=== PATIENT | female | born 1975 | race African-American/Black ===

== ENCOUNTER 2022-09-06 15:44 | Outpatient (CLI) | payer OTHER, SELFPAY ==
--- NOTE | ~2022-09-06 | MM_ITS ---
EXAMINATION: MM screening [facility] BI w vianney HISTORY: Screening TECHNIQUE: Craniocaudal and mediolateral oblique 3-D tomosynthesis images were obtained and synthetic 2-D images were generated. CAD analysis was submitted and interpreted. COMPARISON: Comparison to multiple prior studies sequentially, with oldest reviewed study dated 03/26. BREAST PARENCHYMAL COMPOSITION: There are scattered areas of fibroglandular density. FINDINGS: There is no evidence of suspicious mass, calcification, or architectural distortion to sugg est malignancy in either breast. There has been no suspicious interval change. IMPRESSION: 1. No mammographic evidence of malignancy. 2. Recommend routine screening mammography in one year. BI-RADS Category 1: Negative Reviewed, dictated and finalized at location A. 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
== END 2022-09-06 15:45 | disposition home or self-care (01) ==
LOC: ANHIMG 15:46
PROVIDERS: PCP Family Medicine; Visit Provider Family Medicine
DX: Z12.31 Encounter for screening mammogram for malignant neoplasm of breast (principal)
CPT/HCPCS: 77063; 77067

== ENCOUNTER 2024-02-27 15:39 | Outpatient (CLI) | payer OTHER, SELFPAY ==
--- NOTE | ~2024-02-27 | MM_ITS ---
EXAMINATION: MM screening [facility] BI w vianney HISTORY: Screening TECHNIQUE: Craniocaudal and mediolateral oblique 3-D tomosynthesis images were obtained and synthetic 2-D images were generated. CAD analysis was submitted and interpreted. COMPARISON: Comparison to multiple prior studies sequentially, with oldest reviewed study dated 10/08. BREAST PARENCHYMAL COMPOSITION: There are scattered areas of fibroglandular density. FINDINGS: There is no evidence of suspicious mass, calcification, or architectural distortion to sugg est malignancy in either breast. There has been no suspicious interval change. IMPRESSION: 1. No mammographic evidence of malignancy. 2. Recommend routine screening mammography in one year. BI-RADS Category 1: Negative Reviewed, dictated and finalized at location B.
== END 2024-02-27 15:40 | disposition home or self-care (01) ==
LOC: ANHIMG 15:41
PROVIDERS: PCP Family Medicine; Visit Provider Family Medicine
DX: Z12.31 Encounter for screening mammogram for malignant neoplasm of breast (principal)
CPT/HCPCS: 77063; 77067

== ENCOUNTER 2024-08-06 00:32 | Day surgery (SDC) | payer OTHER, SELFPAY ==
[2024-07-27 14:05] VITALS: BMI 33.0
[2024-08-06 13:02] VITALS: BP 135/85; PULSE 80; RESP 16; TEMP 36.3; O2SAT 94
--- NOTE | 2024-08-06 13:13 | P.PNAN_ITS ---
Anes - Initial Pre Proc Eval Procedure: Operation Date: 08/06/24 14:00 Proposed Procedures p Screening Colonoscopy - Jarek Turk MD Date/Time: 08/06/24 13:13 Surgeon: Jarek Turk MD Pre Op Diagnosis: Screening of colon Patient Data Age: 49 Gender: F Height: 1.7 m Weight: 95.7 kg Last Vital Signs Temp 36.3 C L 08/06/24 13:02 Pulse 80 08/06/24 13:02 Resp 16 08/06/24 13:02 BP 135/85 08/06/24 13:02 Pulse Ox 94 08/06/24 13:02 O2 Del Method Room Air 08/06/24 13:02 Allergies Allergy/AdvReac Type Severity Reaction Status Date / Time doxycycline Allergy Mild rash Verified 08/06/24 12:54 Home Medications Medication Instructions Recorded Confirmed Type spironolactone 50 mg tablet 50 mg PO DAILY #90 tabs 05/21/23 08/06/24 Rx duloxetine 60 mg capsule,delayed 60 mg PO DAILY #90 caps 06/23/24 08/06/24 Rx release (Cymbalta) phentermine 37.5 mg capsule 37.5 mg PO DAILY #30 caps 08/02/24 08/06/24 Rx Patient hx anesthesia problems: none Family hx anesthesia problems: none Results Review: All pre-operative results and documents have been reviewed as part of the pre-operative evaluation. [facility] Past Medical History Medical History Acne cystica Acute maxillary sinusitis, unspecified Acute non-recurrent ethmoidal sinusitis Carpal tunnel syndrome, bilateral Epigastric pain Generalized pruritus GERD (gastroesophageal reflux disease) GERD without esophagitis Goiter Goiter Hives Hives Major depressive disorder, recurrent, moderate MDD (major depressive disorder), recurrent episode, moderate Obesity (BMI 30-39.9) Other specified noninflammatory disorders of vagina (11/25/17) RUQ abdominal pain Wax in ear Surgical History Surgical History H/O partial thyroidectomy Family History Family History Grandparent Family history of osteoarthritis Cerebrovascular accident Hypertension Family history of alcoholism Diabetes mellitus Mother Hypertension Cerebrovascular accident Patient's mother is in good health Family history of syncope Depression Family history of anemia Family history of hepatitis Sibling Patient's sister is in good health Depression Father Family history of hepatitis Social History Social History (Updated 04/05/24 @ 16:06 by Gaby Healy) Social History: Smoking status: Never smoker Second hand tobacco smoke exposure: No Alcohol intake: never Substance use: never Substance use type: does not use Do You Feel Safe in your Home?: Yes Lack of Transportation: No Lack of Food: Never True Current Housing: I Have Housing Concerned About Future Housing: No Difficulty Paying Gas/Electric Bills: No Difficulty Paying for Meds: No Currently Unemployed: No Education: Bachelor's Degree Difficulty w/ Childcare or Family Care: No Living arrangements: with family Occupation/Education: occupation Additional occupation/education comments: [employer] Work[employer] Gender identity (if verbalized by the patient): Female Sexual Orientation (if Verbalized by the Patient): Straight or Heterosexual Spiritual care concerns: No Anes - Eval Final PreProcedure Day of Procedure 08/06/24 13:13 Patient weight: obese Heart: regular rate and rhythm Lungs: clear to auscultation Airway: Mallampati scale class II Neurological: alert and oriented Last oral intake: >/= 8 hours ASA classification: II Emergent: no Anesthetic plan: proceed Anesthesia type and monitoring: general GIVS and standard monitoring Results Review: All pre-operative results and documents have been reviewed as part of the pre- operative evaluation. Informed Consent: The patient's anesthetic plan and its attendant risks and benefits were discussed with the patient/family/POA. Questions were solicited and answers provided to the satisfaction of the patient/family/POA.
[2024-08-06] MEDS: LACTATED RINGERS 1,000 ML 150 ML IV CONT (13:18)
--- NOTE | 2024-08-06 13:23 | P.HP_ITS ---
History of Present Illness History of Present Illness Consent: Risks, benefits, and alternatives have been discussed and questions answered. Patient agrees to proceed with procedure. Chief complaint: Screening of colon Narrative: Barbara Kahn is a 49 year old female here for first screening colonoscopy Review of Systems Review of Systems: All systems reviewed & are unremarkable except as noted in HPI and below PMFSH Past Medical History Medical History Acne cystica Acute maxillary sinusitis, unspecified Acute non-recurrent ethmoidal sinusitis Carpal tunnel syndrome, bilateral Epigastric pain Generalized pruritus GERD (gastroesophageal reflux disease) GERD without esophagitis Goiter Goiter Hives Hives Major depressive disorder, recurrent, moderate MDD (major depressive disorder), recurrent episode, moderate Obesity (BMI 30-39.9) Other specified noninflammatory disorders of vagina (11/25/17) RUQ abdominal pain Wax in ear Surgical History Surgical History H/O partial thyroidectomy Family History Family History Grandparent Family history of osteoarthritis Cerebrovascular accident Hypertension Family history of alcoholism Diabetes mellitus Mother Hypertension Cerebrovascular accident Patient's mother is in good health Family history of syncope Depression Family history of anemia Family history of hepatitis Sibling Patient's sister is in good health Depression Father Family history of hepatitis Social History Social History (Updated 04/05/24 @ 16:06 by Gaby Healy) Social History: Smoking status: Never smoker Second hand tobacco smoke exposure: No Alcohol intake: never Substance use: never Substance use type: does not use Do You Feel Safe in your Home?: Yes Lack of Transportation: No Lack of Food: Never True Current Housing: I Have Housing Concerned About Future Housing: No Difficulty Paying Gas/Electric Bills: No Difficulty Paying for Meds: No Currently Unemployed: No Education: Bachelor's Degree Difficulty w/ Childcare or Family Care: No Living arrangements: with family Occupation/Education: occupation Additional occupation/education comments: [employer] Gender identity (if verbalized by the patient): Female Sexual Orientation (if Verbalized by the Patient): Straight or Heterosexual Spiritual care concerns: No Meds Home Medications and Allergies Home Medications Medication Instructions Recorded Confirmed Type spironolactone 50 mg tablet 50 mg PO DAILY #90 tabs 05/21/23 08/06/24 Rx duloxetine 60 mg capsule,delayed 60 mg PO DAILY #90 caps 06/23/24 08/06/24 Rx release (Cymbalta) phentermine 37.5 mg capsule 37.5 mg PO DAILY #30 caps 08/02/24 08/06/24 Rx Allergies Allergy/AdvReac Type Severity Reaction Status Date / Time doxycycline Allergy Mild rash Verified 08/06/24 12:54 Vital Signs Vital Signs - 24 hr 08/06/24 13:02 Temperature 97.3 F L Pulse Rate 80 Respiratory Rate 16 Blood Pressure 135/85 Pulse Oximetry 94 Oxygen Delivery Room Air Exam Const: General: comfortable and no acute distress HENMT: Face/Nose/Sinus: Normal nares present Eyes: General: appearance normal, both eyes and all related structures Neck: Neck: no JVD Resp: Auscultation: clear to auscultation bilaterally Cardio: Rate: regular rate Rhythm: regular rhythm GI: Inspection: non-distended GI Palp: Yes Soft to palpation Skin: General skin exam: normal color Neuro: General: gait normal Speech: normal speech Extrem: General: normal to inspection Psych: Mental Status: mental status grossly normal Assessment and Plan Assessment and plan (1) Screening for colon cancer: Code(s): Z12.11 - Encounter for screening for malignant neoplasm of colon Status: Acute Assessment and Plan: colonoscopy
[2024-08-06 13:45] LABS: BEDSIDEPREGUCG Negative (Negative)
[2024-08-06 13:46] VITALS: BP 103/54; PULSE 72; RESP 20; O2SAT 100
[2024-08-06 13:56] VITALS: BP 112/57; PULSE 72; RESP 16; O2SAT 100
[2024-08-06 14:06] VITALS: BP 131/76; PULSE 68; RESP 20; O2SAT 100
== END 2024-08-06 14:22 | disposition home or self-care (01) ==
PROVIDERS: PCP Family Medicine; Visit Provider Internal Medicine Gastroenterology
PROC: 0DJD8ZZ Inspection of Lower Intestinal Tract, Via Natural or Artificial Opening Endoscopic (ICD-10-PCS; CPT 45378; principal; 2024-08-06 14:00)
DX: Z12.11 Encounter for screening for malignant neoplasm of colon (principal); K63.5 Polyp of colon; K64.8 Other hemorrhoids; E66.9 Obesity, unspecified; Z68.33 Body mass index [BMI] 33.0-33.9, adult
CPT/HCPCS: 45385; 88305; J2704; J7120